=== PATIENT | male | born 1995 | race Caucasian/White ===

== ENCOUNTER 2018-08-19 07:08 | Emergency (ER) | payer OTHER ==
[~2018-08-19] VITALS: Ht 167.6 cm; Wt 56.7 kg
[2018-08-19] MEDS ORDERED: IBUPROFEN600 MG PO (07:54)
--- OUTSIDE RECORDS SUMMARY | 2018-08-19 09:19 | XMS ---
PreManage Notification: KELVIN BAH [employer] Events No recent Security Events currently on file CRITERIA MET - [facility] [place] - 2 Visits in 30 Days CARE PROVIDERS There are no care providers on record at this time. Esther has no Care Guidelines for this patient. [facility]12 MO.) [facility] TOTAL 2 NOTE: Visits indicate total known visits. ED/UCC VISIT TRACKING (12 MO.) 08/19/2018 07:09 [facility] [place] TYPE: Emergency COMPLAINT: - L FINGER LAC 08[facility]14/2018 21:10 [facility] DIAGNOSES: - Back Pain - Unspecified injury of head, initial encounter - Seizure (Adult - Prior Hx Of) - Seizure - Other generalized epilepsy and epileptic syndromes, not intractable, without status epilepticus - Facial Injury INPATIENT VISIT TRACKING (12 MO.) No inpatient visits to display in this time frame [email or web address]
== END 2018-08-19 08:24 | disposition home or self-care (01) ==
LOC: ED 07:08
PROC: 0HQGXZZ Repair Left Hand Skin, External Approach (ICD-10-PCS; principal; 2018-08-19)
DX: S61.211A Laceration without foreign body of left index finger without damage to nail, initial encounter (principal); X58.XXXA Exposure to other specified factors, initial encounter
CPT/HCPCS: 12001; 73140; 90471; 90715; 99283-25